=== PATIENT | female | born 1990 | race Caucasian/White ===

== ENCOUNTER 2017-02-10 06:51 | Emergency (ER) | payer OTHER ==
[~2017-02-10] VITALS: Ht 162.6 cm; Wt 83.6 kg
[~2017-02-10 06:51] MED LIST: ACTIGALL300 MG PO; BACTRIM,SEPT1 TABLET PO; ENDOCET 5-3251 EACH PO; IBUPROFEN800 MG PO; IRON325 MG PO; Motrin PO; NOHOMEMEDS; PRENATA CHEWAB1 EACH PO; PROCTOZONE-HC30 GM PR; TYLENOL EXTRA500 MG PO
[2017-02-10] MEDS ORDERED: CLINDAMYCIN HC150 MG PO (08:01)
[2017-02-10] MEDS ORDERED: NAPROSYN500 MG PO (08:01)
[2017-02-10] MEDS ORDERED: TRAMADOL HCL50 MG PO (08:01)
[2017-02-10 08:23] VITALS: BP 115/80
== END 2017-02-10 08:24 | disposition home or self-care (01) ==
LOC: EME 06:51
PROC: 3E0T3BZ Introduction of Anesthetic Agent into Peripheral Nerves and Plexi, Percutaneous Approach (ICD-10-PCS; principal; 2017-02-10)
DX: K04.7 Periapical abscess without sinus (principal); S02.5XXA Fracture of tooth (traumatic), initial encounter for closed fracture; K02.9 Dental caries, unspecified; F17.210 Nicotine dependence, cigarettes, uncomplicated; K21.9 Gastro-esophageal reflux disease without esophagitis
CPT/HCPCS: 99281; 99283

== ENCOUNTER 2017-02-12 11:20 | Inpatient (IN) | payer OTHER ==
[~2017-02-12] VITALS: Ht 162.6 cm; Wt 84.2 kg
[~2017-02-12 11:20] MED LIST changes: +CLINDAMYCIN HC150 MG PO; +NAPROSYN500 MG PO; +TRAMADOL HCL50 MG PO
[2017-02-12 13:03] LABS: HEMATOCRIT 36.6 % (36.0-46.0); MCH 25.7 PG (29.0-34.0); MCHC 31.4 G/DL (30.0-36.0); MCV 81.9 FL (83-99); PLATELET COUNT 505 K/uL (156-360); RBC DIS.WIDTH-CV 14.9 % (11.8-14.6); RBC DIS.WIDTH-SD 44.6 % (39-53); RED BLOOD COUNT 4.47 M/uL (3.80-5.20); WHITE BLOOD COUNT 11.5 K/uL (4.1-10.2)
[2017-02-12 13:35] LABS: ANION GAP 9 MEQ/L (2-14); CHLORIDE 103 MEQ/L (99-109); POTASSIUM 3.6 MEQ/L (3.7-5.4); SAMPLE HEMOLYSIS CHECK 0; SAMPLE ICTERIC CHECK 0; SAMPLE LIPEMIA CHECK 0; SODIUM 137 MEQ/L (136-147)
[2017-02-12 13:40] LABS: GFR ESTIMATE (CALCULATED) > 59 mL/min/; GLUCOSE 94 mg/dL (70-99); UREA NITROGEN (BUN) 9 mg/dL (9-23)
[2017-02-12 20:40] VITALS: BP 148/76
[2017-02-13] VITALS (7 sets, daily range): BP systolic 126–147; BP diastolic 68–83
[2017-02-13 07:18] LABS: HEMATOCRIT 32.5 % (36.0-46.0); MCH 26.3 PG (29.0-34.0); MCV 82.3 FL (83-99); MEAN PLAT.VOLUME 11.1 uM^3 (9.5-12.4); PLATELET COUNT 471 K/uL (156-360); RBC DIS.WIDTH-CV 15.1 % (11.8-14.6); RBC DIS.WIDTH-SD 46.1 % (39-53); RED BLOOD COUNT 3.95 M/uL (3.80-5.20); WHITE BLOOD COUNT 11.4 K/uL (4.1-10.2)
[2017-02-13 07:43] LABS: ALKALINE PHOSPHATASE 251 IU/L (3-129); ANION GAP 7 MEQ/L (2-14); CHLORIDE 105 MEQ/L (99-109); GFR ESTIMATE (CALCULATED) > 59 mL/min/; GLUCOSE 85 mg/dL (70-99); POTASSIUM 4.2 MEQ/L (3.7-5.4); SAMPLE HEMOLYSIS CHECK 0; SAMPLE ICTERIC CHECK 0; SAMPLE LIPEMIA CHECK 0; SODIUM 138 MEQ/L (136-147); TOTAL BILIRUBIN 0.4 MG/DL (0.0-1.0); UREA NITROGEN (BUN) 5 mg/dL (9-23)
[2017-02-13 11:50] LABS: METH RESISTANT S AUREUS PCR NEGATIVE (NEGATIVE)
[2017-02-13 11:51] LABS: PROBE CHECK PASS; SPECIMEN PROCESSING CONTROL PASS
[2017-02-14 08:00] VITALS: BP 134/80
[2017-02-14 11:37] VITALS: BP 131/90
[2017-02-14 13:09] VITALS: BP 144/80
[2017-02-14 16:05] VITALS: BP 150/83
[2017-02-14] MEDS ORDERED: AUGMENTIN875 MG PO (16:17)
[2017-02-14] MEDS ORDERED: BACTRIM,SEPT1 TABLET PO (16:18)
== END 2017-02-14 19:26 | disposition home or self-care (01) | DRG 603 ==
LOC: EME 11:20 → EXP 11:20 → 2EAST 18:00 → EDOF 18:00 → 2EAST 20:11
PROVIDERS: Internal Medicine; Internal Medicine Infectious Disease; Nurse Practitioner Family
DX: L03.211 Cellulitis of face (principal); K04.7 Periapical abscess without sinus; F17.210 Nicotine dependence, cigarettes, uncomplicated; Z56.0 Unemployment, unspecified
CPT/HCPCS: 70487; 80048; 80053; 80202; 85027; 87040; 87641; 99281; 99285; J0295; J1885; J3010; J3370; J7030; J7050

== ENCOUNTER 2017-02-28 20:23 | Emergency (ER) | payer OTHER ==
[~2017-02-28] VITALS: Ht 165.1 cm; Wt 81.2 kg
[~2017-02-28 20:23] MED LIST changes: +AUGMENTIN875 MG PO
[2017-02-28 21:24] LABS: HEMATOCRIT 34.9 % (36.0-46.0); MCH 25.8 PG (29.0-34.0); MCHC 31.8 G/DL (30.0-36.0); MCV 81.2 FL (83-99); MEAN PLAT.VOLUME 10.3 uM^3 (9.5-12.4); PLATELET COUNT 593 K/uL (156-360); RBC DIS.WIDTH-CV 15.5 % (11.8-14.6); RBC DIS.WIDTH-SD 45.5 % (39-53); WHITE BLOOD COUNT 12.1 K/uL (4.1-10.2)
[2017-02-28 21:40] LABS: CHLORIDE 107 mEq/L (99-109); POTASSIUM 3.6 mEq/L (3.7-5.4); SODIUM 139 mEq/L (136-147)
[2017-02-28 21:42] LABS: GLUCOSE 88 mg/dL (70-99)
[2017-02-28 21:43] LABS: ANION GAP 10 MEQ/L (2-14)
[2017-02-28 21:46] LABS: GFR ESTIMATE (CALCULATED) > 59 mL/min/
[2017-02-28 21:47] LABS: UREA NITROGEN (BUN) 9 mg/dL (9-23)
[2017-03-01 04:05] VITALS: BP 128/69
== END 2017-03-01 01:51 | disposition short-term general hospital (02) ==
LOC: EME 20:23
DX: M27.2 Inflammatory conditions of jaws (principal); L03.211 Cellulitis of face; K21.9 Gastro-esophageal reflux disease without esophagitis; F17.200 Nicotine dependence, unspecified, uncomplicated
CPT/HCPCS: 70487; 80048; 85027; 87040; 99281; 99285; J2270; J2405; J3370